=== PATIENT | female | born 2000 | race Caucasian/White ===

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

== ENCOUNTER 2021-04-28 14:17 | Outpatient (REF) | payer MEDICAID, SELFPAY ==
[2021-04-28 20:13] LABS: Bilirubin Negative (Negative); Blood Negative (Negative); Clarity Clear (Clear); Glucose Negative (Negative); Ketones Negative (Negative); Leukocyte Esterase Negative (Negative); Nitrite Negative (Negative); Specific Gravity >= 1.030 (1.005-1.025); Urobilinogen 0.2 EU/dL (Up TO 0.2)
[2021-05-03 15:02] LABS: Chlamydia Result Negative (Negative); GC Result Negative (Negative)
== END 2021-04-28 14:18 | disposition home or self-care (01) ==
LOC: NCHCN 14:17
PROVIDERS: PCP Family Medicine; Visit Provider Family Medicine
DX: R30.0 Dysuria (principal); Z11.3 Encounter for screening for infections with a predominantly sexual mode of transmission
CPT/HCPCS: 87491; 87591; 81003

== ENCOUNTER 2021-07-02 14:05 | Outpatient (REF) | payer MEDICAID, SELFPAY ==
[2021-07-02 19:38] LABS: HCT 39.2 % (36.0-46.0); MCHC 33.2 % (32.0-36.0); MCV 90.5 fL (80-95); Platelet Count 234 10^3/uL (130-400); RBC 4.33 10^6/uL (3.93-5.22); RDW 12.9 % (11.7-14.6); WBC 9.56 10^3/uL (4.4-10.8)
[2021-07-02 20:07] LABS: TSH (W/Ref FT4) 0.94 uIU/mL (0.52-4.13)
[2021-07-02 21:17] LABS: HCG Qual (Serum) Negative
[2021-07-05 15:35] LABS: Chlamydia Result Negative (Negative); GC Result Negative (Negative)
== END 2021-07-02 14:06 | disposition home or self-care (01) ==
LOC: NCHCN 14:05
PROVIDERS: PCP Family Medicine; Visit Provider Family Medicine
DX: N92.1 Excessive and frequent menstruation with irregular cycle (principal); Z11.3 Encounter for screening for infections with a predominantly sexual mode of transmission
CPT/HCPCS: 85027; 87491; 87591; 84443; 84703

== ENCOUNTER 2024-07-17 14:24 | Outpatient (CLI) | payer BC, SELFPAY ==
--- NOTE | 2024-07-17 | DI.RAD_ITS ---
Exam(s) XR KNEE RT 3V AP,LAT,NELY EXAM: XR KNEE RT 3V AP,LAT,NELY CLINICAL HISTORY: Medial rt knee pain and swelling s/p blunt force trauma, limited ROM. TECHNIQUE: 2D digital imaging was performed. COMPARISON: CR XR KNEE LT 3V AP,LAT,NELY from 05/25/2020 FINDINGS: 3 views No evidence of acute fracture. There may be a small amount of increased joint fluid here. Bone dens ity normal. No osseous lesions. No joint space narrowing. No radiopaque foreign bodies. IMPRESSION: No acute osseous findings in the knee. Small amount of increased joint fluid. There also appears to be some subcutaneous soft tissue swelling on the lateral aspect of the lower ipsilateral thigh. DATA REPOSITORY: RADIATION DOSE DELIVERED:
== END 2024-07-17 14:44 ==
PROVIDERS: PCP Family Medicine; Visit Provider Nurse Practitioner Family
DX: M25.561 Pain in right knee (principal)
CPT/HCPCS: 73562

== ENCOUNTER 2024-11-25 18:07 | Outpatient (REF) | payer BC, SELFPAY ==
--- NOTE | 2024-11-25 15:43 | PAPFT_PTH ---
PATIENT: Ashley Jack [id number] AGE/SX: 24/F ROOM: RE11/25/[address]: Leah Powell : 2000 BED: DIS: 11/25/2024 SPEC #: [id number] RECD: 11/26/24 12:50 STATUS: ABRAM ESPINOZA #: [id number] BLAINE: 11/25/24 15:[address]: Leah Powell DEPT: [facility] Cytology RECD BY: Misti Fair Tissues: 1 - CX/ENDOCX FOR PAP SMEARS Procedures: PAP THIN PREP/UVM Screening Comments: [id number] (CHLAMYDIA/GC)
[2024-11-27 12:25] LABS: Chlamydia Result Negative (Negative); GC Result Negative (Negative)
== END 2024-11-25 18:08 | disposition home or self-care (01) ==
LOC: NCHCN 18:07
PROVIDERS: PCP Family Medicine; Visit Provider Family Medicine
DX: Z11.3 Encounter for screening for infections with a predominantly sexual mode of transmission (principal); Z12.4 Encounter for screening for malignant neoplasm of cervix
CPT/HCPCS: 87491; 87591; 88142